=== PATIENT | female | born 1995 | race Caucasian/White ===

== ENCOUNTER 2025-02-16 19:03 | Emergency (ER) | payer OTHER, SELFPAY ==
--- OUTSIDE RECORDS SUMMARY | 2024-02-07 13:06 | XMS_ITS | Encounter Summary ---
Author Organization [facility] Address [address] [place] [address] Care Team Providers Care Claims Adjustor Name Role Phone Callie Mon MD Primary Care Prov ider Encounter Details Date Type Department Care Team (Late st Contact Info) Description 02/07/2024 2:06 PM EDT Hospital Encounter TH HISTORIC ENCOUNTERS EASTERN CONVERSION ONLY Parul Schmid MD [address] [address] Social History Tobacco Use Types Packs/Day Years Used Date Smoking Tobacco: Former Cigarettes 0 Q uit: 12/30/2022 Smokeless Tobacco: Never Alcohol Use Standard Drinks/Week Comments Not Currently 0 (1 standard drink = 0.6 oz pur e alcohol) Housing Instability Answer Date Recorde d Are you worried that in the next 2 months you may not have stable housing? No 11/14/2024 Food Access & Nutrition Answer Date Rec orded Do you have access to a vari ety of food including fruits and vegetables? Yes 11/14/2024 Access to Healthcare Answer Date Record ed Within the last 3 months, stephanie w many times did you visit the emergency department for your medical care? 0 11/14/2024 Health Literacy Answer Date Recorded How often do you need to hav e someone help you when you read instructions, pamphlets, or other written material from your doctor or pharmacy? Never 11/14/2024 Caregiver: How often do you need to have someone help you when you read instructions, pamphlets, or other written material from your doctor or pharmacy? Not on file 11/14/2024 Financial Risk Answer Date Recorded How hard is it for you to pa y for the very basics like food, housing, medical care, and air conditioning / heating? Not very hard 11/14/2024 Transportation Answer Date Recorded Has the lack of transportati on kept you from meetings, work, or from getting things needed for daily living? No Has the lack of transportati on kept you from medical appointments or from getting medications? No 11/14/2024 Social Isolation Answer Date Recorded How often do you feel lonely or isolated from th ose around you? Never 11/14/2024 Food Risk Answer Date Recorded Within the past 12 months we worried whether our food would run out before we got money to buy more. Sometimes true 025 Within the past 12 months th e food we bought just didn't last and we didn't have money to get more. Sometimes true 11/14/2024 Dependent Care Answer Date Recorded Do you need help finding or paying for care for your loved ones. For example, child care center administrator or elderly care for an older adult? No 11/14/2024 Education Answer Date Recorded Do you think completing more education or training, like finishing a GED, going to college, or learning a trade, would be helpful for you? No 11/14/2024 Employment and Income Answer Date Recor ded During the last four weeks, have you been actively looking for work? No 11/14/2024 Living Situation Answer Date Recorded What is your living situation? Unrecognized valu e 11/14/2024 Interpersonal Safety Answer Date Record ed Physical Abuse Unrecognized value 02/12/2024 Verbal Abuse Unrecognized value 02/12/2024 Comments No Sex and Gender Information Value Date Recorded Sex Assigned at Female 02/07/2024 2:19 PM EDT Legal Sex Female 3:59 AM EST Gender Identity Female 02/07/2024 2:19 PM EDT Sexual Orientation Lesbian or Bennett 02/07/2024 2: 19 PM EDT documented as of this encounter Functional Status * Calculated C-SSRS Risk Score (Lifetime/Recent) Answer Date of Assessment Author No Risk Indicated 02/11/2024 8:27 PM Irma Leon, DARYL * [place] Suicide Severity Rating Scale (Screener/Recent Self-Report) Question Answer Date of Assessment Author 1. Wish to be (Past 1 Month) No 02/11/2024 8:27 PM Crystal Leon RN 2. Non-Specific Active Suici windy Thoughts (Past 1 Month) No 02/11/2024 8:27 PM Miah Leon RN 6. Suicidal Behavior (Lifetime) No 8:27 PM Irma Leon RN documented as of this encounter Plan of Treatment Not on file documented as of this encounter Procedures Procedure Name Priority Date/Time Associated Diagnosis Comments DR ABDOMEN FLAT AND ERECT Routine 02/08/2024 7:42 AM EDT documented in this encounter Results * DR ABDOMEN FLAT AND ERECT (02/08/2024 7:42 AM EDT) Anatomical Region Laterality Modality Radiographic Karoline ging 02/07/2024 2:10 PM EDT Narrative 02/08/2024 7:42 AM EDT [facility] Diagnostic Imaging Department [address] [place] [address] Patient: GERALDO CASTORENA /Age/Sex: 1995 - Unit#: [id number] Location/Status: SPDIGEN/REG CLI Mnemonic[facility] Ordering Physician: PARUL SCHMID MD DR Abdomen Flat and Erect - 02/07/241416 Report Status:Signed HISTORY: The patient is a 28-year-old female with abdominal discomfort and constipation. FINDINGS: Supine and erect views of the abdomen demonstrate normal appearance of the bony structures. The bowel gas pattern is nonobstructive. A moderate amount of fecal material is present in the distal transverse colon as well as in the descending and rectosigmoid colon consistent with mild to moderate constipation. No mass or radiopaque calculus is seen. IMPRESSION: Nonobstructive bowel gas pattern. There is evidence of mild to moderate constipation. Code 74542 Dictating Physician: EDEN COLÓN MD Electronically Signed by: EDEN COLÓN MD Dic Date/Time: 02/08/24740 Sign date/Time: 02/08/24741 Procedure Note Eden Colón MD - 02/10/2024 [facility] Diagnostic Imaging Department [address] [place] [address] Patient: ELIAN CASTORENAFADY FletcherO.B./Age/Sex: 1995 - 28 - F Unit#: [id number] [facility]ing [facility] Ordering Physician: PARUL SCHMID MD DR Abdomen Flat and Erect - 02/07/24 - 7 Report Status:Signed HISTORY: The patient is a 28-year-old female with abdominal discomfortand constipation. FINDINGS: Supine and erect views of the abdomen demonstrate normalappearance of the bony structures. The bowel gas pattern is nonobstructive. Amoderate amount of fecal material is present in the distal transverse colon as wellas in the descending and rectosigmoid colon consistent with mild to moderate constipation. No mass or radiopaque calculus is seen. IMPRESSION: Nonobstructive bowel gas pattern. There is evidence of mildto moderate constipation. Code 87334 Dictating Physician: EDEN COLÓN MD Electronically Signed by: EDEN COLÓN MD Dic Date/Time: 02/08/2441 Sign date/Time: 02/08/24741 us Parul Schmid MD IMG XR PROCEDURES Final Resul t documented in this encounter Visit Diagnoses Not on filedocumented in this encounter Care Teams Claims Adjustor Relationship Specialty Start Date End Date Callie Mon MD [address] [place] [id number] PCP - General Internal Medicine 06/30/17 documented as of this encounter
--- NOTE | ~2025-02-16 | US_ITS ---
CLINICAL HISTORY: 4 weeks with vaginal bleed US OB 1st Trimester transabdominal and transvaginal with Doppler Comparison: None provided Findings: Single intrauterine . MSD: 2.5 mm. EGA: 4 weeks, 5 days. KATIE: October 21, 2025. Perigestational hemorrhage measuring 0.3 x 0.2 x 0.3 cm. Right ovary 2.2 x 2.9 x 2.9 cm. Left ovary 1.3 x 3.4 x 2.3 cm. Normal color Doppler with arterial/venous spectral tracing of both ovaries. IMPRESSION: Gestational sac in the uterine fundus without pole or yolk sac. Small perigestational hemorrhage. Findings could represent early versus completed . Continued follow-up recommended. This document has been electronically signed by: Vladimir Stubbs MD on 02/17/2025 00:42:21
[2025-02-16 19:41] VITALS: BP 113/64; PULSE 92; RESP 16; TEMP 36.7; O2SAT 99; BMI 25.8
--- NOTE | 2025-02-16 19:43 | ED.GENADULT ---
HPI - General Adult General Chief complaint: Vaginal Bleeding Stated complaint: cramps and spotting Time Seen by Provider: 02/16/25 21:58 Source: patient Mode of arrival: ambulatory Limitations: no limitations History of Present Illness ED Provider: DR. Coulter HPI narrative: 29-year-old female LMP was , patient presented with vaginal spotting and abdominal cramps yesterday, today was no vaginal bleeding or spotting no abdominal cramps, patient stated that the vaginal spotting started after lifting a heavy Grocery box 2 days ago. Patient had serial hCG checked in the last 3 days reportedly [facility] from 100 to 250 to [facility] Declined any trauma or injury to the abdomen. Patient is O-positive blood type. No fever, no chills. Patient feel no symptoms today. Related Data Allergies Allergy/AdvReac Type Severity Reaction Status Date / Time lactulose AdvReac Stomach Verified 02/16/25 19:43 Upset Review of Systems Review of Systems: All other systems are reviewed and are negative Constitutional: Reports as per HPI and Reports no additional constitutional complaints Eyes: Reports as per HPI and Reports no additional eye complaints Reports system reviewed and no additional complaints, except as documented Cardiovascular: Reports as per HPI and Reports no additional cardiovascular complaints Respiratory: Reports as per HPI and Reports no additional respiratory complaints Gastrointestinal: Reports as per HPI and Reports no additional gastrointestinal complaints Genitourinary: Reports no additional female genitourinary complaints Musculoskeletal: Reports no additional musculoskeletal complaints Skin/Breast: Reports system reviewed and no additional complaints, except as docu Psychiatric: Reports no additional psychiatric complaints Endocrine: Reports no additional endocrine complaints Hematologic/Lymphatic: Reports no additional hematologic/lymphatic complaints Allergic/Immunologic: Reports no additional allergic/immunologic complaints Reports system reviewed and no additional complaints, except as documented and Reports Abnormal speech present Physical Exam ED Vital Signs: Vital Signs - 24 hr 02/16/25 19:41 02/16/25 20:07 02/17/25 01:01 Temperature 98.0 F 98.0 F 98.1 F Pulse Rate 92 92 82 Respiratory Rate 16 16 20 Blood Pressure 113/64 113/64 113/62 Pulse Oximetry 99 99 97 Oxygen Delivery Method Room Air Room Air Room Air 02/17/25 01:46 Temperature 98.1 F Pulse Rate 82 Respiratory Rate 20 Blood Pressure 113/62 Pulse Oximetry 97 Oxygen Delivery Method Room Air BMI result Body Mass Index 25.8 Vital signs have been reviewed and appear to be correct. Blood pressure elevated. Heart rate normal. Respiratory rate normal. Temperature normal. Oxygen saturation normal. Appearance: Alert. Oriented X3. No acute distress. Head: Normal external exam. Normocephalic. Atraumatic. No Brock signs noted. No raccoon eyes noted Eyes: PERRLA. EOMI. Conjunctiva and sclera normal. Eyelids normal. ENT: TM's Normal. Pharynx normal. Uvula midline. Moist mucous membranes. No trismus noted. No drooling noted. No muffled voice noted. Neck: Normal inspection. Neck supple. FROM. No adenopathy. Thyroid Normal. No meningeal signs. No neck mass noted. CVS: Normal heart rate and rhythm. Heart sound normal. No murmurs noted. Pulses normal throughout. Respiratory: No respiratory distress. Painless inspiration. Breath sounds normal. No wheezes/rales/rhonchi noted. Chest nontender. No accessory muscle usage noted or decreased air movement noted. Abdomen: Soft and nontender. Bowel sounds normal in all 4 quadrants. No distention noted. No organomegaly noted. No visible injury noted. Pelvic exam: Deferred for the ultrasound. Back: No CVA tenderness. Full range of motion noted. Skin: Skin warm and dry. Normal skin color. Normal skin turgor. No rashes/lesions/lacerations noted. Extremities: No lower extremity edema. Extremities exhibit normal range of motion. Extremities nontender. Neuro: Oriented X 3. Cranial nerve exam: II-XII are grossly intact No motor deficit. No sensory deficit. Reflexes normal. Course Course Course Narrative: RME: 29-year-old female about 5 weeks presents to ED for lower abdominal cramping with vaginal spotting. Patient has history of miscarriages. Patient had 3 full-term . Labs ordered Reevaluation(s) Reevaluation #1: 29-year-old female G 13 P 3 in early , ultrasound is nonconclusive either early versus complete . given that the patient report her hCG is trending up in the last 3 days threatened is more favorable diagnosis, Patient will need to follow-up on her hCG and repeat ultrasound patient was instructed to follow-up with her care provider or return to our emergency department for comparison. Time: 00:48 Medications Administered Discontinued Medications Generic Name Dose Route Start Last Admin Trade Name Sanjay PRN Reason Stop Dose Admin Acetaminophen 650 mg 02/16/25 23:15 02/16/25 23:21 Acetaminophen 325 Mg Tablet PO 02/16/25 23:16 650 mg ONCE ONE Administration Medical Decision Making Differential Diagnosis Differential Diagnoses: The differential diagnosis associated with the presentation includes ( Threatened , early normal , ectopic , severe anemia.) Admission/Observation Consideration of admission/observation: Escalation of care including admission/observation considered Lab Data [facility] Lab Attestation statement: I reviewed the patient's lab results. 02/16/25 19:51 02/16/25 19:51 Labs: Lab Results 02/16/25 Range/Units 19:51 WBC 17.7 H (4.8-10.8) X10*3/uL RBC 4.65 (4.20-5.50) X10*6/uL Hgb 14.1 (12.0-16.0) g/dl Hct 41.4 (37.0-47.0) % MCV 89.0 (80.0-98.0) fL MCH 30.3 (27.0-33.0) pg MCHC 34.1 (31.0-35.0) g/dl RDW 13.2 (11.0-16.0) % Plt Count 283 (160-400) X10*3/uL MPV 10.1 (9.4-12.3) fL Immature Gran % (Auto) 0.5 H (0.0-0.4) % Neut % (Auto) 69.1 (45-73) % Lymph % (Auto) 22.8 (20-40) % Murray % (Auto) 5.8 (2-11) % Eos % (Auto) 1.4 (0-4) % Baso % (Auto) 0.4 (0-2) % Lymph # (Auto) 4.0 (1.2-4.9) X10*3/uL Murray # (Auto) 1.0 (0.1-1.2) X10*3/uL Eos # (Auto) 0.3 (0.0-0.4) X10*3/uL Baso # (Auto) 0.1 (0.0-0.2) X10*3/uL Abs Immat Gran (auto) 0.09 H (0.00-0.03) X10*3/uL Absolute Neuts (auto) 12.2 H (2.0-8.3) x10*3/uL Absolute Nucleated RBC 0.000 (0.0-0.012) X10*3/uL Nucleated RBC % (auto) 0.0 (0.0-0.2) /100WBC Sodium 139 (135-145) mmol/L Potassium 3.8 (3.3-5.1) mmol/L Chloride 108 (96-108) mmol/L Carbon Dioxide 23 (22-29) mmol/L Anion Gap 12 (12-20) BUN 13 (9-16) mg/dL Creatinine 0.90 (0.5-1.4) mg/dL Estim Creat Clear Calc 81.0 Estimated GFR > 60 Random Glucose 90 (60-115) mg/dL Calcium 8.5 (8.4-10.2) mg/dL Total Bilirubin 0.2 (0.0-1.0) mg/dL AST 18 (5-31) U/L ALT 12 (0-31) U/L Alkaline Phosphatase 65 (39-117) U/L Total Protein 6.7 (6.5-8.0) g/dL Albumin 4.1 (3.5-5.0) g/dL Beta HCG, Quant 1077 mIU/mL Urine Color Yellow Urine Appearance Clear Urine pH 6.0 (5.0-9.0) Ur Specific [place] >= 1.030 H (1.005-1.025) Urine Protein Negative (Neg-Trace) mg/dL Urine Glucose (UA) Negative (Negative) mg/dL Urine Ketones Trace (Negative) mg/dL Urine Blood Negative (Negative) Urine Nitrite Negative (Negative) Ur Leukocyte Esterase Negative (Negative) Urine Test POSITIVE H (NEGATIVE) Independent Interpretation I performed an independent interpretation of an: Ultrasound ( Limited OB:Gestational sac in the uterine fundus without pole or yolk sac. Small perigestational hemorrhage. Findings could represent early versus completed . Continued follow-up recommended.) Discharge Plan Discharge Clinical Impression: Threatened Patient Disposition: Home, Self-Care Instructions: Threatened Miscarriage (ED) Interventions: ED Discharge Assessment Last Done: 02/17/25 01:46 Discharge Date/Time: 02/17/25 01:48 Print Language: [place]
[2025-02-16 19:59] LABS: Hematocrit 41.4 % (37.0-47.0); Hemoglobin 14.1 g/dl (12.0-16.0); Imm Gran Abs Auto 0.09 X10*3/uL (0.00-0.03); Imm Gran Pct Auto 0.5 % (0.0-0.4); Lymphocytes Absolute Auto 4.0 X10*3/uL (1.2-4.9); MANUAL DIFF FLAG NO; Mean Corpuscular HGB Conc 34.1 g/dl (31.0-35.0); Mean Corpuscular Hemoglobin 30.3 pg (27.0-33.0); Mean Corpuscular Volume 89.0 fL (80.0-98.0); NRBC Abs Auto 0.000 X10*3/uL (0.0-0.012); NRBC Pct Auto 0.0 /100WBC (0.0-0.2); Platelet Count 283 X10*3/uL (160-400); Red Blood Count 4.65 X10*6/uL (4.20-5.50); White Blood Count 17.7 X10*3/uL (4.8-10.8)
[2025-02-16 20:02] LABS: Appearance Urine Clear; Glucose Urine UA Negative (Negative); PH 6.0 (5.0-9.0); Specific Gravity - Urine >= 1.030 (1.005-1.025); UPreg QC Valid YES
[2025-02-16 20:07] VITALS: BP 113/64; PULSE 92; RESP 16; TEMP 36.7; O2SAT 99
[2025-02-16 20:18] LABS: Alanine Aminotransferase 12 U/L (0-31); Albumin Level 4.1 g/dL (3.5-5.0); Alkaline Phosphatase 65 U/L (39-117); Anion Gap 12 (12-20); Aspartate Amino Transferase 18 U/L (5-31); Blood Urea Nitrogen 13 mg/dL (9-16); Calcium 8.5 mg/dL (8.4-10.2); Carbon Dioxide 23 mmol/L (22-29); Chloride 108 mmol/L (96-108); Creatinine Clr Calc Pharmacy 81.0; Estimated Glomerular Filt Rate > 60; Potassium 3.8 mmol/L (3.3-5.1); Sodium 139 mmol/L (135-145); Total Protein 6.7 g/dL (6.5-8.0)
--- OUTSIDE RECORDS SUMMARY | 2025-02-16 20:22 | XMS_ITS | Clinical Summary ---
Author Organization [facility] Address [address] [place] [address] Phone Care Team Providers Care Surgical Supervisor Name Role Phone Callie Mon MD Primary Care Prov ider Allergies Active Allergy Reactions Criticality Noted Date Comments House Dust Itching,Rash 10/01/2015 sneezing Lactose GI intolerance 02/11/2024 Lactose intolerant Naproxen Hallucinations 12/25/2018 Other Hives 10/01/2015 Latex, adhesives Tramadol 02/11/2024 Told in childhood Medications polyethylene glycol (MIRALAX) 17 gram packetIndicatio ns:Irritable bowel syndrome with constipation,Pe riumbilical abdominal pain Take 17 g by mouth 1 (one) time each day. 510 g 11 4 03/22/20 25 Active cholecalciferol (VITAMIN D-3) 50 mcg (2,000 unit) capsule Take 1 capsule (2,000 Units total) by mouth 1 (one) time each day. 90 each 1 5 05/13/19 26 Active hydrocortisone (ANUSOL-HC) 2.5 % rectal creamIndication s:Rectal pain Insert into the rectum 2 (two) times a day if needed for hemorrhoids (for rectal discomfort) for up to 14 days. Apply externally to rectum as needed for rectal discomfort 30 g 1 5 Active hydrOXYzine HCL (ATARAX) 10 mg tablet Take 1 tablet (10 mg total) by mouth every 6 (six) hours if needed for itching. 90 tablet 1 5 05/13/19 26 Active Active Problems Problem Noted Date Diagnosed Date Nausea and vomiting 02/13/2024 Abdominal pain 02/13/2024 Assessment & Plan (03/22/2024 10:04 AM EST): Orders: dicyclomine (BENTYL) 10 mg capsule; Take 1 capsule (10 mg total) by mouth 4 (four) times a day (before meals and nightly). polyethylene glycol (MIRALAX) 17 gram packet; Take 17 g by mouth 1 (one) time each day. Gastroparesis 02/11/2024 Assessment & Plan (02/11/2024 5:05 PM EST): Initial work up showed normal LFTs and an unremarkable abdominal ultrasound a gallbladder/biliary episode has been ruled out. Gastroenterology consult placed-recommended keeping patient n.p.o. after midnight for possible EGD in the morning or Monday. Continue clear liquid till midnight and patient will be n.p.o. after midnight As needed analgesics, antipyretics, antiemetics Continue IV PPI Leukocytosis 02/11/2024 Assessment & Plan (02/11/2024 4:42 PM EST): Labs revealed WBC 15.8 vitals are stable no fever, tachycardia noted. During ED workup patient become hypotensive after she received 4 mg IV morphine which improved with IV bolus. Patient reports subjective fever and chills past couple days and reports urinary symptoms. Will check UA for UTI Hold antibiotics for now Monitor WBC closely Vitamin D deficiency Overview (11/14/2024): DX:Vitamin D deficiency; COMMENT: Vitamin D replacement prescribed; return in 3 months to recheck Vitamin D level Mild intermittent asthma without complication Overview (11/14/2024): DX:Unspecified asthma(493.90) PTSD (post-traumatic stress disorder) Overview (11/14/2024): DX:PTSD (post-traumatic stress disorder); COMMENT: Did have assessment 11/04/14 by Sar[facility]a Collier at [facility] - case closed 01/06/15 after poor follow up by patient according to [facility] records Bipolar disorder ([facility] V24, [facility] V28) Overview (11/14/2024): DX:Bipolar disorder ([facility]); COMMENT: Per [facility] intake 11/04/14 - poor follow up by patient so closed her case 01/06/15 per [facility] records (Saritha Collier, clinician) Anxiety Overview (11/14/2024): DX:Anxiety Encounters Date Type Department Care Team Description 11/28/2024 1:45 PM EDT Office Visit Adult Medicine [address] [phone] Olivia Fuentes NP Dysuria (Primary Dx); Vaginal yeast infection; Screen for STD (sexually transmitted disease) 11/28/2024 Telephone Adult Medicine [address] [phone] Callie Hart MD 11/19/2024 Telephone Adult Medicine [address] [phone] Callie Hart MD from Last 3 Months Immunizations Immunization Administration Dates Next Due DTaP (Infanrix) 6wks to less than 7yo ,11/13/1996,04/05/1996,12/31,1995 [id number] (Pentacel) 2mo to less than 5yo 11/13/1996,04/05/1996,01/01/1996,10/22 HPV, Quadrivalent 07/28/2009,01/08/2009,11/13/19 09 Hepatitis B Pediatric (Enger ix B; Recombivax HB) to less than 20 yo 11/13/1996,1995,1995 Hib (HbOC) 11/13/1996, 6,01/01/1996,10/22 IPV Inactivated polio (Ipol) 6wks and older 02/10/2000 Influenza Quadravalent, MDCK , 0.5ml, with preservative (Flucelvax) 6mo and older 01/04/2017 Influenza trivalent, with pr eservative (Fluzone; Afluria) 6mo and older 02/20/2015,01/01/2013,02/01/2012,01/04 MMR, measles mumps and rubel la Live (Priorix; M-M-R II) 12mo and older 02/10/2000,1996 Meningococcal MCV4P 02/20/2015,03/22/2011 OPV 04/05/1996,01/01/1996,1995 Tdap Tetanus diptheria acell ular pertussis (Boostrix; Adacel) 7yo and older 06/09/2020,08/15/2018,03/21/2013,01/31 Varicella live (Varivax) 12m o and older 03/22/2011,02/03/2004 Surgical History Surgery Date Site/Laterality Comments WISDOM TOOTH EXTRACTION Bilateral PROCEDURE: HISTORICAL WISDOM TEETH EXTRACTION; COMMENT: 12 years old GALLBLADDER 02/09/2024 - 03/09/2024 Medical History Medical History Date Comments Acute suppurative otitis med ia without spontaneous rupture of eardrum 12/01/02 DX:Acute suppurative ot itis media without spontaneous rupture of eardrum Streptococcal sore throat 06/10 DX:Str eptococcal sore throat 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 Cellulitis and abscess of face D X:Cellulitis and abscess of face Molluscum contagiosum 09/01/03 DX:Mollusc um contagiosum Unspecified asthma(493.90) DX:Un specified asthma(493.90) UTI (urinary tract infection) 03/07/2011 DX :UTI (urinary tract infection) Foster care (status) 03/22/2011 DX:Foster c are (status) Pyelonephritis 08/18/2011 DX:Pyelonephriti s Vitamin D deficiency 02/23/2015 DX:Vitamin D deficiency; COMMENT: Vitamin D replacement prescribed; return in 3 months to recheck Vitamin D level Smoking history 03/22/2011 DX:Smoking histo ry Anxiety 03/22/2011 DX:Anxiety PTSD (post-traumatic stress disorder) 02/10/2011 DX:PTSD (post-traumatic stress disorder); COMMENT: Did have assessment 11/04/14 by [facility]a Collier at [facility] - case closed 01/06/15 after poor follow up by patient according to [facility] records Bipolar disorder (CMS/HCC V2 4, CMS/HCC V28) 05/18/2015 DX:Bipolar disorder ([facility]); C OMMENT: Per [facility] intake 11/04/14 - poor follow up by patient so closed her case 01/06/15 per [facility] records (Saritha Collier, clinician) Gastroparesis 02/11/2024 Family History Medical History Relation Name Comments Asthma Brother Alcohol/Drug Father suicide Asthma Father Schizophrenia Father Allergies Maternal Grandfather Lung cancer Maternal Grandfather Allergies Maternal Grandmother Multiple sclerosis Maternal Grandmother Other: copd Maternal Grandmother Other: heart Maternal Grandmother Alcohol/Drug Mother Asthma Mother COPD Mother Heart attack Mother Hypertension Mother Lupus Mother Other cancer Mother Seizures Mother Stroke Mother Thyroid disease Mother vulvar cancer Mother No Known Problems Paternal Grandfather No Known Problems Paternal Grandmother Arrhythmia Sister 1 herpes Sister 1 pulmonary stenosis Sister 2 Relation Name Status Comments Brother Alive Father 1961 Maternal Grandfather Alive Maternal Grandmother Alive Mother Alive 1975 Paternal Grandfather Other Paternal Grandmother Other Sister 1 Alive Sister 2 Alive Social History Tobacco Use Types Packs/Day Years Used Date Smoking Tobacco: Former Cigarettes 0 Q uit: 12/30/2022 Smokeless Tobacco: Never Tobacco Cessation:Counseling Given: No Alcohol Use Standard Drinks/Week Comments Not Currently [...] ed Within the last 3 months, stephanie tamez many times did you visit the emergency [...] care for your loved ones. For example, children's literature professor or elderly care for an older adult? [...] or Bennett 02/07/2024 2: 19 PM EDT Obstetrics History Last Filed Vital Signs Vital Sign Reading Time Taken Comments Blood Pressure 106/74 11/28/2024 1:53 PM EDT Pulse 74 11/28/2024 1:53 PM EDT Temperature 36.7 C (98 F) 11/28/2024 1:53 PM EDT Respiratory Rate 18 03/02/2024 6:13 AM EST Oxygen Saturation 98% 04/30/2024 6:07 PM EST Inhaled Oxygen Concentration - - Weight 66.7 kg (147 lb) 11/28/2024 1:53 PM EDT Height 157.5 cm (5' 2 ) 11/28/2024 1:53 PM EDT Body Mass Index 26.89 11/28/2024 1:53 PM EDT Plan of Treatment Health Maintenance Due Date Last Done Comments Pneumococcal Vaccine: Pediatrics (0 to 5 Years) and At-Risk Patients (6 to 49 Years) (1 of 2 - PCV) 07/18/2014 Cervical Cancer Screening: Pap Smear 07/18/2016 Depression Screening 04/10/2024 11/14/2023 COVID-19 Vaccine ( season) 2024 Influenza Vaccine (#1) 2024 7, 02/20/2015, 01/01/2013, Additional history exists Social Influencers of Health Screening 11/14/2025 11/14/2024 Cholesterol Screening (Lipid Panel) 11/14/2029 11/14/2024, 11/14/2023, 11/14/2023 DTaP,Tdap,and Td Vaccines (10 - Td or Tdap) 06/09/2030 06/09/2020, 08/15/2018, 03/21/2013, Additional history exists RSV Immunization Adult Patients (1 - 1-dose 75+ series) 07/18/2070 HIB Vaccines Completed 11/13/1996, 09/1996, 04/05/1996, Additional history exists Hepatitis B Vaccines Completed 11/13/1996, 1995, 1995 IPV Vaccines Completed 02/10/2000, 09/1996, 04/05/1996, Additional history exists MMR Vaccines Completed 02/10/2000, 1996 HPV Vaccines Completed 07/28/2009, 04/2008, 11/12/2008 Varicella Vaccines Completed 03/22/2011, 02/03/2004 Meningococcal ACWY Vaccine Aged Out 02/20/2015, No longer eligible based on patient's age to complete this topic HIV Screening Completed 09/15/2016 Hepatitis C Screening Completed 09/15/2016 Hepatitis A Vaccines Aged Out No long er eligible based on patient's age to complete this topic Meningococcal B Vaccine Aged Out No l onger eligible based on patient's age to complete this topic RSV Immunization Patients Under 20 months Aged Out No longer eligible based on patient's age to complete this topic Procedures Procedure Name Priority Date/Time Associated Diagnosis Comments CULTURE URINE Routine 11/28/2024 4:38 PM EDT Dysuria CHLAMYDIA TRACHOMATIS AND NEISSERIA GONORRHOEAE PCR Routine 11/28/2024 2:55 PM EDT Screen for STD (sexually transmitted disease) POC URINE NON-AUTO W/O MICRO Routine 11/28/2024 2:45 PM EDT Dysuria LIPID PANEL WITH REFLEX TO DIRECT LDL Routine 11/14/2024 11:18 AM EDT Screening, lipid DEPRESSION SCREENING Routine 11/14/2023 HEPATITIS C SCREENING Routine 09/15/2016 HIV SCREENING Routine 09/15/2016 from Last 3 Months or Most Recently Relevant to Health Maintenance Results * Culture urine (11/28/2024 4:38 PM EDT) Culture, Urine 10,000-49,000 CFU/mL Mixed urogenital tanja, no uropathogens present. Suggest repeat specimen if clinically indicated. 11/29/2024 1:24 PM EDT [facility] Urine Urine specimen obtained by clean catch procedure / Unknown Non-blood Collection / Unknown 11/28/2024 4:38 PM EDT 11/28/2024 4:39 PM EDT us Olivia Fuentes NP LAB MICROBIOLOGY - GENERAL ORD ERABLES Final Result [facility] [address] [place] [address], [place] [phone] * Chlamydia trachomatis and Neisseria gonorrhoeae molecular study (11/28/2024 2:55 PM EDT) [facility] Neisseria gonorrhoeae PCR Negative Negative LAB MOLECULAR DIAGNOSTICS METHOD 11/29/2024 1:52 PM EDT [facility] Chlamydia trachomatis PCR Negative Negative LAB MOLECULAR DIAGNOSTICS METHOD 11/29/2024 1:52 PM EDT [facility] Urine First stream urine specimen / Unknown Non-blood Collection / Unknown 11/28/2024 2:55 PM EDT 11/28/2024 2:55 PM EDT us Olivia Fuentes NP LAB MICROBIOLOGY - GENERAL ORD ERABLES Final Result [facility] [address] [place] [address], [place] [phone] * (ABNORMAL) POC Urine Non-Auto W/O Micro (11/28/2024 2:45 PM EDT) [facility] Glucose UA POC Negative Negative, Trace mg/dL Leukocytes UA POC Negative Negative Nitrite UA POC Negative Negative Urobilinogen UA POC 0.2 E.U./dL 0.2 E.U./dL, 1.0 E.U./dL, 8 , Unable to interpret due to interfering substances mg/dL Protein UA POC Negative Negative mg/dL PH UA POC 5.0 Blood UA POC Negative Negative Specific [place] UA POC 1.020 Ketones UA POC 40(A) Negative Bilirubin UA POC Negative Negative Appearance UA POC Clear Clear Color UA POC Yellow Light Yellow, Yellow, Dark Yellow Urine Urine specimen obtained by clean catch procedure / Unknown 11/28/2024 2:45 PM EDT us Olivia Fuentes NP POINT OF CARE TEST ENTER/EDIT ORDERABLES Edited Result - Final * Lipid panel with reflex to direct LDL (11/14/2024 11:18 AM EDT) Cholesterol 120 0 - 200 mg/dL LAB CHEMISTRY METHOD 11/14/2024 2:01 PM EDT [facility] Triglycerides 97 0 - 150 mg/dL LAB CHEMISTRY METHOD 11/14/2024 2:01 PM [facility] HDL 59 >=40 mg/dL LAB CHEMISTRY METHOD 11/14/2024 2:01 PM EDT [facility] LDL Calculated 42 0 - 100 mg/dL LAB CHEMISTRY METHOD 11/14/2024 2:01 PM EDT [facility] Comment:Estimated LDL Calcul ated using equation: Total cholesterol - HDL cholesterol - (Triglycerides/5) VLDL Cholesterol Pasha 19.4 mg/dL LAB CHEMISTRY METHOD 11/14/2024 2:01 PM [facility] Non HDL Chol. (LDL+VLDL) 61 <145 mg/dL LAB CHEMISTRY METHOD 11/14/2024 2:01 PM [facility] Chol/HDL Ratio 2.0 0.0 - 4.4 LAB CHEMISTRY METHOD 11/14/2024 2:01 PM [facility] Blood Venous blood specimen / Unknown Venipuncture / Unknown 11/14/2024 11:18 AM EDT 11/14/2024 11:18 AM EDT Jamari FALK LAB BLOOD ORDERABLES Final Res ult [facility] [address] [place] [address], * Depression Screening (11/14/2023) Depression Screening abstracted Historical Provider HEALTH MAINTENANCE Final Result * HIV Screening (09/15/2016) HIV Screening abstracted Historical Provider HEALTH MAINTENANCE Final Result * Hepatitis C Screening (09/15/2016) Hepatitis C Screening abstracted us Historical Provider HEALTH MAINTENANCE Final Result from Last 3 Months or Most Recently Relevant to Health Maintenance [place] [address] [place] [address] HEALTH PLAN Advance Directives * Full Code - Default (Latest Code Status on File) Date Activated Date Inactivated Comments 02/11/2024 4:23 PM 02/13/2024 10:35 PM This is ord er is used when code status has not been discussed with the patient, or code status is otherwise unknown/unconfirmed To update the patient's code status, place a code status order. Do not modify or discontinue any currently active code status orders. * Full Code - Default Date Activated Date Inactivated Comments 02/11/2024 3:48 PM 02/11/2024 4:23 PM This is orde r is used when code status has not been discussed with the patient, or code status is otherwise unknown/unconfirmed To update the patient's code status, place a code status order. Do not modify or discontinue any currently active code status orders. * Full Code - Confirmed Date Activated Date Inactivated Comments 02/11/2024 2:49 PM 02/11/2024 3:[address] at[facility] was ascertained in the following way: Code status discussion: discussion with patient To update the patient's code status, place a code status order. Do not modify or discontinue any currently active code status orders. Care Teams Surgical Supervisor Relationship Specialty Start Date End Date Callie Mon MD [address] [place] [id number] PCP - General Internal Medicine 06/30/17
[2025-02-17 01:01] VITALS: BP 113/62; PULSE 82; RESP 20; TEMP 36.7; O2SAT 97
[2025-02-17 01:46] VITALS: BP 113/62; PULSE 82; RESP 20; TEMP 36.7; O2SAT 97
== END 2025-02-17 01:48 | disposition home or self-care (01) ==
PROVIDERS: Physician Assistant; Emergency Provider Emergency Medicine; PCP Internal Medicine
DX: O20.0 Threatened abortion (principal); R10.22 Pelvic and perineal pain left side; Z79.899 Other long term (current) drug therapy
CPT/HCPCS: 36415; 76801; 76817; 80053; 81003; 81025; 84702; 85025; 99284

== ENCOUNTER → 2025-02-16 23:32 | Outpatient (BNV) | payer MEDICAID, SELFPAY | PROVIDERS: Emergency Provider Emergency Medicine; PCP Internal Medicine; Visit Provider Radiology Diagnostic Radiology | DX: O26.851 Spotting complicating pregnancy, first trimester (principal); Z3A.01 Less than 8 weeks gestation of pregnancy | CPT/HCPCS: 76801; 76817 ==